=== PATIENT | female | born 1940 | race Two or more races ===

== ENCOUNTER 2018-12-25 22:45 | Inpatient (IN) | payer MEDICAID, MEDICARE ==
[2018-12-25 23:26] LABS: % BASOPHILS 0.6 % (0.0-2.0); % EOSINOPHILS 2.1 % (0.0-5.0); % LYMPHOCYTES 14.4 % (20.0-50.0); % NEUTROPHILS 77.9 % (40.0-80.0); BASOPHILE ABSOLUTE 0.1 Th/cumm (0-0.2); EOSINOPHILE ABSOLUTE 0.3 Th/cmm (0.1-0.4); HEMATOCRIT 44.1 % (41.0-60); HEMOGLOBIN 14.3 gm/dL (12-16); LYMPHOCYTE ABSOLUTE 1.8 Th/cmm (1.5-3.0); MEAN CELL VOLUME 84.7 fl (81-100); MEAN CORPUSCULAR HEMOGLOBIN 27.4 pg (27.0-31.0); MEAN CORPUSCULAR HGB CONC 32.4 pg (28.0-36.0); MONOCYTE ABSOLUTE 0.6 Th/cmm (0.3-1.0); NEUTROPHILE ABSOLUTE 9.5 Th/cmm (1.8-8.0); PLATELET COUNT 271 Th/cmm (150-400); RED CELL DISTRIBUTION WIDTH 14.1 % (11.5-20.0); WHITE BLOOD COUNT 12.3 Th/cmm (4.8-10.8)
[2018-12-26] LABS: ALKALINE PHOSPHATASE 54 U/L (34-104); ANION GAP 13.2 (7.0-16.0); BILIRUBIN,TOTAL 0.4 mg/dL (0.3-1.0); BUN - UREA NITROGEN 14 mg/dL (7-25); CALCIUM SERUM 9.6 mg/dL (8.6-10.3); CARBON DIOXIDE 27.2 mEq/L (21.0-31.0); CHLORIDE 99 mEq/L (98-107); CREATININE - SERUM 0.7 mg/dL (0.6-1.2); GLUCOSE 146 mg/dL (70-105); POTASSIUM SERUM 4.4 mEq/L (3.5-5.1); SGOT 14 U/L (13-39); SGPT/ALT 9 U/L (7-52); SODIUM SERUM 135 mEq/L (136-145); TOTAL PROTEIN,SERUM 8.2 gm/dL (6.0-8.3)
--- NOTE | 2018-12-26 00:55 | ED Physician Chart ---
ED Chief Complaint/HPI - Patient Information Date Seen:: 12/25/18 Time Seen:: 22:59 Chief Complaint:: RT KNEE PAIN History of Present Illness:: 78 YR OLD RT KNEE PAIN HX OF TROUBLE AMBULATION Allergies:: Allergies Allergy/AdvReac Type Severity Reaction Status Date / Time aspirin Allergy Verified 12/25/18 22:50 codeine Allergy Verified 12/25/18 22:50 Penicillins [PCN] Allergy Verified 12/25/18 22:50 Vitals:: Vital Signs - 8 hr 12/25/18 22:51 Temp 98.8 F HR 95 RR 17 BP 144/59 O2 Sat % 97 ED Review of Systems - Review of Systems General/Constitutional: No fever Skin: No skin lesions Head: No headache Eyes: No loss of vision ENT: No earache Neck: No neck pain Cardio Vascular: No chest pain Pulmonary: No SOB GI: No nausea [employer]: No abnormal vaginal bleed Endocrine: No polyuria Hematopoietic: No bruising Allergic/Immuno: No urticaria Neurological: No syncope Family Medical History - Family Member Mother History Unknown: Yes ED Labs/Radiology/EKG Results - Lab Results Results: Laboratory Tests 12/25/18 12/25/18 23:15 23:15 WBC 12.3 H RBC 5.20 Hgb 14.3 Hct 44.1 MCV 84.7 MCH 27.4 MCHC Differential 32.4 RDW 14.1 Plt Count 271 MPV 7.7 Neutrophils % 77.9 Lymphocytes % 14.4 L Monocytes % 5.0 Eosinophils % 2.1 Basophils % 0.6 Sodium 135 L Potassium 4.4 Chloride 99 Carbon Dioxide 27.2 Anion Gap 13.2 BUN 14 Creatinine 0.7 Est GFR ( Amer) TNP Est GFR (Non-Af Amer) TNP BUN/Creatinine Ratio 20.0 Glucose 146 H Calcium 9.6 Total Bilirubin 0.4 AST 14 ALT 9 Alkaline Phosphatase 54 Total Protein 8.2 Albumin 4.0 Globulin 4.2 Albumin/Globulin Ratio 1.0 ED Septic Shock - . Is Septic Shock (SBP<90, OR Lactate>4 mmol\L) present?: No - <6hrs of presentation: Vital Signs: Vital Signs - 8 hr 12/25/18 22:51 Temp 98.8 F HR 95 RR 17 BP 144/59 O2 Sat % 97
[2018-12-26 03:38] VITALS: BP 129/54
--- NOTE | 2018-12-26 09:24 | Diagnostic Imaging Report ---
Exam: Right knee joint HISTORY: Knee pain Exam: None Findings: Multiple views of the right knee joint reviewed. The study demonstrates extensive degenerative osteoarthritis with narrowing of the joint spaces flattening of tibial plateau. There is no evidence of fracture dislocation or joint effusion. Lateral examination of the right knee joint is suboptimal. IMPRESSION: extensive osteoarthritis right knee joint.
[2018-12-26] MEDS ORDERED: Hydrocodone/APAP 5mg/325mg Tab PO PRN (12:44)
[2018-12-27] MEDS ORDERED: GLUCAGON HCl 1 MG KIT IM PRN (03:04)
[2018-12-27] MEDS ORDERED: HYPROMELLOSE EACH EYE SCH (03:15)
[2018-12-27] MEDS ORDERED: DEXTRAN EACH EYE SCH (03:15)
--- NOTE | 2018-12-27 04:18 | History & Physical ---
ADMIT DATE: 12/26/2018 CHIEF COMPLAINT: Right knee pain, severe. HISTORY OF PRESENT ILLNESS: The patient is a 78-year-old female with a past medical history of COPD, asthma, diabetes mellitus type 2, hypertension, CKD, GERD without esophagitis, glaucoma, lives at [facility], brought to the ER for right knee pain, neck pain and left shoulder pains. On initial evaluation, her vitals were stable and labs showed WBC count 12,300. X-ray of the right knee suggest a severe DJD. She was unable to walk on her own. She was admitted with diagnosis of right knee pain requiring further evaluation. PAST MEDICAL HISTORY: Includes COPD, asthma, difficulty walking, severe arthritis, DJD, diabetes mellitus type 2, hypertension, CKD, GERD without esophagitis, and glaucoma. ALLERGIES: ASPIRIN, CODEINE AND PENICILLIN. MEDICATIONS: As per medication reconciliation sheet. It includes: Tylenol 650 mg p.o. q. 6 hourly p.r.n. for mild pain and fever with a temperature more than 101 degrees Fahrenheit, vitamin C 500 mg p.o. daily, brimonidine 0.2% ophthalmic drops one tab each eye twice a day, vitamin D3 5000 units p.o. daily, vitamin B12 1000 mcg p.o. daily, [place] 5/325 mg p.o. q. 6 hours p.r.n. for severe pain, regular insulin with sliding scale, latanoprost 0.005% eyedrops 1 drop each eye at nighttime, multivitamin 1 tablet p.o. daily and Timoptic 0.5% ophthalmic solution 1 drop each eye twice a day. SOCIAL HISTORY: The patient lives in a nursing facility. No history of smoking, alcohol or drug use. FAMILY HISTORY: Not available. IMMUNIZATION STATUS: Unknown. REVIEW OF SYSTEMS: GENERAL: The patient has no fever, no chills. HEENT: No diplopia, no photophobia, no sore throat. RESPIRATORY: No cough, no shortness of breath. CARDIOVASCULAR: No chest pain or palpitation. GASTROINTESTINAL: No nausea, no vomiting, no diarrhea, no constipation. GENITOURINARY: No dysuria. MUSCULOSKELETAL: The patient has neck pain and left shoulder pain. The patient had right knee pain. CENTRAL NERVOUS SYSTEM: No headache, no dizziness, no focal weakness. SKIN: No ulcers. PHYSICAL EXAMINATION: VITAL SIGNS: Shows temperature is 98.8 degrees Fahrenheit, pulse is 95, respirations 17 and blood pressure is 144/59. GENERAL: The patient is comfortable lying in the bed, obese, not in acute distress. HEENT: Head is normocephalic, atraumatic. Oral cavity moist, pink tongue. EYES: No pallor, no icterus. Pupils are PERRLA, EOMI. NECK: Supple, no JVD, no carotid bruit. Trachea in midline. CHEST: Bilateral breath sounds. No crackles or wheezing. HEART: S1, S2 within normal limits. Regular rhythm. No murmur, no gallop. ABDOMEN: Soft, nontender, nondistended. Bowel sounds present. EXTREMITIES: No cyanosis, no clubbing, no edema. The patient has severe right knee pain and tenderness. No further examination performed because of severe pain. The patient has tenderness in the left shoulder as well as some tenderness in the cervical spine. CENTRAL NERVOUS SYSTEM: Alert, awake, oriented x 3. Speech is clear. Follows the command. LABORATORY DATA: Current lab shows WBC count 12,300, hemoglobin 14.3, hematocrit 44.1, platelets are 271,000, neutrophil is 78%. Sodium 135, potassium 4.4, chloride 99, bicarbonate is 27.2, BUN is 14, creatinine 0.7, glucose is 146. Right knee x-ray showed severe degenerative joint disease. IMPRESSION: 1. Right knee pain, most likely secondary to degenerative joint disease. 2. Left shoulder pain may be secondary to degenerative joint disease. 3. Neck pain symptoms secondary to degenerative joint disease, arthritis. 4. Chronic obstructive pulmonary disease. 5. Asthma. 6. Essential hypertension. 7. Diabetes mellitus type 2. 8. Chronic kidney disease stage 2. 9. Gastroesophageal reflux disease. 10. Glaucoma in both eyes. 11. Leukocytosis. RECOMMENDATION AND PLAN: We will check x-ray of the left both shoulders, cervical spine, Orthopedic consultation and check ESR, CRP. Check urinalysis. We will continue checking the labs. Discussed with the patient in detail. JOB# [id number]
[2018-12-27 07:03] LABS: % BASOPHILS 0.2 % (0.0-2.0); % EOSINOPHILS 3.1 % (0.0-5.0); % LYMPHOCYTES 21.5 % (20.0-50.0); % NEUTROPHILS 70.2 % (40.0-80.0); EOSINOPHILE ABSOLUTE 0.4 Th/cmm (0.1-0.4); HEMATOCRIT 40.8 % (41.0-60); HEMOGLOBIN 13.1 gm/dL (12-16); LYMPHOCYTE ABSOLUTE 2.8 Th/cmm (1.5-3.0); MEAN CELL VOLUME 85.8 fl (81-100); MEAN CORPUSCULAR HEMOGLOBIN 27.5 pg (27.0-31.0); MONOCYTE ABSOLUTE 0.6 Th/cmm (0.3-1.0); PLATELET COUNT 318 Th/cmm (150-400); RED BLOOD COUNT 4.76 Mil/cmm (3.80-5.20); RED CELL DISTRIBUTION WIDTH 14.2 % (11.5-20.0); WHITE BLOOD COUNT 12.8 Th/cmm (4.8-10.8)
[2018-12-27 07:12] LABS: ANION GAP 11.2 (7.0-16.0); BUN - UREA NITROGEN 15 mg/dL (7-25); CALCIUM SERUM 9.2 mg/dL (8.6-10.3); CARBON DIOXIDE 26.7 mEq/L (21.0-31.0); CHLORIDE 100 mEq/L (98-107); CREATININE - SERUM 0.6 mg/dL (0.6-1.2); GLUCOSE 126 mg/dL (70-105); POTASSIUM SERUM 3.9 mEq/L (3.5-5.1); SODIUM SERUM 134 mEq/L (136-145)
[2018-12-27] MEDS: INSULIN HUMAN REGULAR 100 UNIT/ML VIAL SUBQ SCH (07:21)
[2018-12-27 08:56] LABS: ESR SEDIMENTATION SED RATE 54 mm/hr (0-30)
[2018-12-27] MEDS ORDERED: Non-Formulary Item 1 EA (Cholecalciferol (Vitamin D3) [Vitamin D3] 5,000 UNIT) PO SCH (09:00)
[2018-12-27] MEDS: Multivitamin Tab PO SCH (09:11)
[2018-12-27] MEDS: Polyvinyl Alcohol Ophth Soln 15 mL Bottle EACH EYE SCH ×2 (09:23→18:58)
--- NOTE | 2018-12-27 09:36 | Diagnostic Imaging Report ---
Left shoulder (3 views) HISTORY: Pain Mild irregularity associated degenerative changes noted along the lateral aspect of the humeral head. Mild narrowing and hypertrophic bony changes seen about the acromioclavicular joint. No acute abnormalities. No fractures. No dislocation. IMPRESSION: 1. Mild degenerative changes 2. No acute abnormalities
--- NOTE | 2018-12-27 09:46 | Diagnostic Imaging Report ---
Right shoulder (3 views) HISTORY: Pain No acute bony abnormalities. No fractures. No dislocation. Narrowing and hypertrophic bone formation noted about the acromioclavicular joint. IMPRESSION: 1. Degenerative changes 2. No acute abnormalities
--- NOTE | 2018-12-27 09:47 | Diagnostic Imaging Report ---
Cervical spine (4 views) HISTORY: Pain The body of C7 is not well seen due to difficulty in patient positioning. Straightening of the cervical lordosis which may be associated spasm. There appears to be narrowing the C4-5 and C5-6 interspaces. Suggestion of narrowing the C6-7 interspace. Mild spur formation noted about the endplates of C3-4, C5, C6. No definite acute abnormalities. No definite fractures. 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 Prevertebral soft tissues appear normal. IMPRESSION: 1. Limited exam due to difficulty in patient positioning 2. No acute abnormalities 3. Degenerative changes 4. Hypoplastic cervical ribs
[2018-12-27] MEDS ORDERED: Non-Formulary Item 1 EA (Latanoprost/Pf [Latanoprost 0.005% Eye Drop] 1 DROP) EACH EYE SCH (21:00)
[2018-12-28 05:37] LABS: % LYMPHOCYTES 22.8 % (20.0-50.0); % MONOCYTES 4.1 % (2.0-10.0); % NEUTROPHILS 70.1 % (40.0-80.0); EOSINOPHILE ABSOLUTE 0.3 Th/cmm (0.1-0.4); HEMOGLOBIN 13.7 gm/dL (12-16); LYMPHOCYTE ABSOLUTE 2.5 Th/cmm (1.5-3.0); MEAN CELL VOLUME 84.1 fl (81-100); MEAN CORPUSCULAR HEMOGLOBIN 28.1 pg (27.0-31.0); MEAN CORPUSCULAR HGB CONC 33.3 pg (28.0-36.0); MONOCYTE ABSOLUTE 0.5 Th/cmm (0.3-1.0); NEUTROPHILE ABSOLUTE 7.8 Th/cmm (1.8-8.0); PLATELET COUNT 289 Th/cmm (150-400); RED BLOOD COUNT 4.88 Mil/cmm (3.80-5.20); RED CELL DISTRIBUTION WIDTH 13.6 % (11.5-20.0); WHITE BLOOD COUNT 11.1 Th/cmm (4.8-10.8)
[2018-12-28 05:53] LABS: ANION GAP 12.4 (7.0-16.0); BUN - UREA NITROGEN 16 mg/dL (7-25); CALCIUM SERUM 9.4 mg/dL (8.6-10.3); CARBON DIOXIDE 25.5 mEq/L (21.0-31.0); CHLORIDE 99 mEq/L (98-107); CREATININE - SERUM 0.6 mg/dL (0.6-1.2); GLUCOSE 132 mg/dL (70-105); POTASSIUM SERUM 3.9 mEq/L (3.5-5.1); SODIUM SERUM 133 mEq/L (136-145)
[2018-12-28] MEDS: INSULIN HUMAN REGULAR 100 UNIT/ML VIAL SUBQ SCH (06:32)
[2018-12-28] MEDS: Multivitamin Tab PO SCH (09:57)
[2018-12-28] MEDS: Polyvinyl Alcohol Ophth Soln 15 mL Bottle EACH EYE SCH ×2 (11:26→17:21)
[2018-12-29] MEDS: INSULIN HUMAN REGULAR 100 UNIT/ML VIAL SUBQ SCH (06:31)
[2018-12-29 07:06] LABS: HEMATOCRIT 43.2 % (41.0-60); HEMOGLOBIN 14.5 gm/dL (12-16); MEAN CELL VOLUME 83.4 fl (81-100); MEAN CORPUSCULAR HEMOGLOBIN 27.9 pg (27.0-31.0); MEAN CORPUSCULAR HGB CONC 33.4 pg (28.0-36.0); PLATELET COUNT 278 Th/cmm (150-400); RED BLOOD COUNT 5.18 Mil/cmm (3.80-5.20); RED CELL DISTRIBUTION WIDTH 13.7 % (11.5-20.0); WHITE BLOOD COUNT 10.3 Th/cmm (4.8-10.8)
[2018-12-29 07:18] LABS: ANION GAP 13.5 (7.0-16.0); BUN - UREA NITROGEN 15 mg/dL (7-25); CALCIUM SERUM 9.4 mg/dL (8.6-10.3); CARBON DIOXIDE 24.4 mEq/L (21.0-31.0); CHLORIDE 99 mEq/L (98-107); CREATININE - SERUM 0.6 mg/dL (0.6-1.2); GLUCOSE 138 mg/dL (70-105); POTASSIUM SERUM 3.9 mEq/L (3.5-5.1); SODIUM SERUM 133 mEq/L (136-145)
--- NOTE | 2018-12-29 07:20 | Progress Notes ---
DATE: 12/28/2018 INTERNAL MEDICINE PROGRESS NOTE SUBJECTIVE: The patient is lying in the bed, complains of right knee pain, left shoulder pain and neck pain. X-ray done and it just showed severe DJD osteoarthritis. OBJECTIVE: VITAL SIGNS: Current vital signs show temperature is 98.8, pulse 92, respirations 18, blood pressure 128/61. GENERAL: The patient is comfortable lying in the bed, not in acute distress. Obese. HEAD, EYES, EARS, NOSE, AND THROAT: Head is normocephalic, atraumatic. Oral cavity moist, pink tongue. EYES: No pallor, no icterus. PERRLA, EOMI. NECK: Supple, no JVD, no carotid bruit. Trachea in midline. CHEST: Bilateral breath sounds. No crackles or wheezing. HEART: S1, S2 within normal limits. Regular rhythm. No murmur, no gallop. ABDOMEN: Soft, nontender, nondistended. Bowel sounds present. EXTREMITIES: No cyanosis, no clubbing, no edema. NEUROLOGIC: Alert, awake, oriented x 3. LABORATORY DATA: Current lab shows WBC count is 11,100, hemoglobin 13.7, hematocrit 41, platelets are 289,000, neutrophils 70%. Sodium 133, potassium 3.9, chloride 99, bicarbonate is 25, BUN is 16, creatinine 0.6, glucose is 132. Rheumatoid factor is less than 10. MRSA screen is negative. ASSESSMENT: 1. Right knee pain, most likely secondary to DJD. The patient needs orthopedic consultation. Unfortunately, we do not have any orthopedic consultation available at this time in this facility. 2. Leukocytosis. 3. Left shoulder pain, most likely DJD. 4. Neck pain secondary to DJD. 5. Chronic obstructive pulmonary disease. 6. Asthma. 7. Essential hypertension. 8. Diabetes mellitus type 2. 9. Chronic kidney disease stage 2. 10. Gastroesophageal reflux disease. 11. Glaucoma in both eyes. RECOMMENDATION AND PLAN: We will discharge the patient tomorrow on 12/29/2018. The patient may follow up with orthopedic consultation as outpatient basis and may consider going back to the [facility], where she goes of most of the time. ARIELLE patient. JOB# [id number] [facility]IT[facility]
[2018-12-29 08:00] LABS: BAND NEUTROPHILE 0 % (0-10); BASOPHIL 0 % (0-3); EOSINOPHIL 3 % (0-5); LYMPHOCYTE 24 % (20-50); MONOCYTE 2 % (2-10); NEUTROPHILS 71 % (40-80)
[2018-12-29] MEDS: Multivitamin Tab PO SCH (09:00)
[2018-12-29] MEDS: Polyvinyl Alcohol Ophth Soln 15 mL Bottle EACH EYE SCH ×2 (09:00→17:02)
[2018-12-30] MEDS: INSULIN HUMAN REGULAR 100 UNIT/ML VIAL SUBQ SCH (06:48)
[2018-12-30] MEDS: Polyvinyl Alcohol Ophth Soln 15 mL Bottle EACH EYE SCH ×2 (08:20→16:41)
[2018-12-30] MEDS: Multivitamin Tab PO SCH (08:22)
--- NOTE | 2018-12-30 15:19 | Infectious Disease Prog Note ---
Infectious Disease Subjective - Review of Systems Service Date: 12/30/18 Subjective: C/o of right knee pains. Neck pains. Infectious Disease Objective - Results Result Diagrams: 12/29/18 06:44 12/29/18 06:44 Recent Labs: Laboratory Last Values WBC 10.3 Th/cmm (4.8-10.8) 12/29/18 06:44 RBC 5.18 Mil/cmm (3.80-5.20) 12/29/18 06:44 Hgb 14.5 gm/dL (12-16) 12/29/18 06:44 Hct 43.2 % (41.0-60) 12/29/18 06:44 MCV 83.4 fl (81-100) 12/29/18 06:44 MCH 27.9 pg (27.0-31.0) 12/29/18 06:44 MCHC Differential 33.4 pg (28.0-36.0) 12/29/18 06:44 RDW 13.7 % (11.5-20.0) 12/29/18 06:44 Plt Count 278 Th/cmm (150-400) 12/29/18 06:44 MPV 8.1 fl 12/29/18 06:44 Add Manual Diff YES 12/29/18 06:44 Neutrophils % 70.1 % (40.0-80.0) 12/28/18 05:10 Band Neutrophils % 0 % (0-10) 12/29/18 06:44 Lymphocytes % 22.8 % (20.0-50.0) 12/28/18 05:10 Monocytes % 4.1 % (2.0-10.0) 12/28/18 05:10 Eosinophils % 3.0 % (0.0-5.0) 12/28/18 05:10 Basophils % 0.0 % (0.0-2.0) 12/28/18 05:10 Neutrophils (Manual) 71 % (40-80) 12/29/18 06:44 Lymphocytes 24 % (20-50) 12/29/18 06:44 Monocytes 2 % (2-10) 12/29/18 06:44 Eosinophils 3 % (0-5) 12/29/18 06:44 Basophils 0 % (0-3) 12/29/18 06:44 ESR 54 mm/hr (0-30) H 12/27/18 05:45 Sodium 133 mEq/L (136-145) L 12/29/18 06:44 Potassium 3.9 mEq/L (3.5-5.1) 12/29/18 06:44 Chloride 99 mEq/L (98-107) 12/29/18 06:44 Carbon Dioxide 24.4 mEq/L (21.0-31.0) 12/29/18 06:44 Anion Gap 13.5 (7.0-16.0) 12/29/18 06:44 BUN 15 mg/dL (7-25) 12/29/18 06:44 Creatinine 0.6 mg/dL (0.6-1.2) 12/29/18 06:44 Est GFR ( Amer) TNP 12/29/18 06:44 Est GFR (Non-Af Amer) TNP 12/29/18 06:44 BUN/Creatinine Ratio 25.0 12/29/18 06:44 Glucose 138 mg/dL (70-105) H 12/29/18 06:44 POC Glucose 108 MG/DL (70 - 105) H 12/30/18 06:38 Calcium 9.4 mg/dL (8.6-10.3) 12/29/18 06:44 Total Bilirubin 0.4 mg/dL (0.3-1.0) 12/25/18 23:15 AST 14 U/L (13-39) 12/25/18 23:15 ALT 9 U/L (7-52) 12/25/18 23:15 Alkaline Phosphatase 54 U/L (34-104) 12/25/18 23:15 C-Reactive Protein 4.6 mg/dL (0.0-0.9) H 12/27/18 05:45 Total Protein 8.2 gm/dL (6.0-8.3) 12/25/18 23:15 Albumin 4.0 gm/dL (3.7-5.3) 12/25/18 23:15 Globulin 4.2 gm/dL 12/25/18 23:15 Albumin/Globulin Ratio 1.0 (1.0-1.8) 12/25/18 23:15 Rheumatoid Factor <10.0 IU/mL (0.0-13.9) 12/27/18 15:00 - Physical Exam Vitals and I&O: Vital Signs Temp 98.1 F 12/30/18 11:00 Pulse 90 12/30/18 11:00 Resp 20 12/30/18 11:00 BP 103/74 12/30/18 11:00 Pulse Ox 96 12/30/18 11:00 Intake & Output 12/29/18 12/30/18 12/30/18 18:59 06:59 18:59 Intake Total 1800 Balance 1800 Weight (lbs) 113.398 kg Intake: Oral 1800 Other: # Voids 4 # Bowel Movements 0 Weight Source Bedscale Active Medications: Current Medications Acetaminophen (Tylenol) 650 mg PO Q6H PRN PRN Reason: Pain (Mild) Stop: 02/24/19 12:44 Last Admin: 12/30/18 08:27 Dose: 650 mg Acetaminophen (Tylenol) 650 mg PO Q6HR PRN PRN Reason: Pain or Fever >101 Stop: 02/25/19 03:03 Last Admin: 12/30/18 01:13 Dose: 650 mg Acetaminophen/Hydrocodone Bitart ([place] 5mg/325mg) 2 tab PO Q6H PRN PRN Reason: Pain (Severe) Stop: 02/24/19 12:43 Artificial Tears (Artificial Tears Ophth Soln) 1 drop EACH EYE BID [facility] Stop: 02/25/19 08:59 Last Admin: 12/30/18 08:20 Dose: 1 drop Ascorbic Acid (Vitamin C) 500 mg PO DAILY [facility] Stop: 02/25/19 08:59 Last Admin: 12/30/18 08:22 Dose: 500 mg Brimonidine Tartrate (Alphagan 0.2% Ophth Soln) 1 drop EACH EYE BID [facility] Stop: 02/25/19 08:59 Last Admin: 12/30/18 08:33 Dose: Not Given Cholecalciferol (Vitamin D3) 5,000 iu PO DAILY [facility] Stop: 02/25/19 08:59 Last Admin: 12/30/18 08:21 Dose: 5,000 iu Cyanocobalamin (Vitamin B12) 1,000 mcg PO DAILY [facility] Stop: 02/25/19 08:59 Last Admin: 12/30/18 08:22 Dose: 1,000 mcg Diphenhydramine HCl (Benadryl) 25 mg PO Q6HR PRN PRN Reason: Itching Stop: 02/27/19 21:48 Last Admin: 12/30/18 08:25 Dose: 25 mg Glucagon (Glucagen) 1 mg IM PRN PRN PRN Reason: HYPOGLYCEMIA Stop: 02/25/19 03:03 Insulin Human Regular (Humulin R) 0 unit SUBQ QDAC [facility]; Protocol Stop: 02/25/19 07:29 Last Admin: 12/30/18 06:48 Dose: Not Given Latanoprost (Xalatan 0.005% Ophth Soln) 1 drop EACH EYE HS [facility] Stop: 02/25/19 20:59 Last Admin: 12/29/18 21:01 Dose: 1 drop Multivitamins/Vitamin C (Theragran) 1 tab PO DAILY [facility] Stop: 02/25/19 08:59 Last Admin: 12/30/18 08:22 Dose: 1 tab Timolol Maleate (Timoptic 0.5% Ophth Soln) 1 drop EACH EYE BID [facility] Stop: 02/25/19 08:59 Last Admin: 12/30/18 08:33 Dose: Not Given General: no acute distress, well developed, well nourished HEENT: atraumatic, normocephalic, PERRLA, EOMI Neck: supple, no thyromegaly Cardiovascular: S1S2, regular Lungs: clear to auscultation bilaterally, clear to percussion Abdomen: soft, no tender, no distended Extremities: no cyanosis, no clubbing, no edema Neurological: awake, alert, oriented Skin: intact Infectious Disease Assmt/Plan - Assessment Assessment: 1. Right knee pain, likely secondary to DJD. The patient needs orthopedic consultation. Unfortunately, we do not have any orthopedic consultation available at this time in this facility. 2. Leukocytosis. 3. Left shoulder pain, most likely DJD. 4. Neck pain secondary to DJD. 5. Chronic obstructive pulmonary disease. 6. Asthma. 7. Essential hypertension. 8. Diabetes mellitus type 2. 9. Chronic kidney disease stage 2. 10. Gastroesophageal reflux disease. 11. Glaucoma in both eyes. - Plan Plan: Patient has refused to go to [facility]. Will discharge patient to and from there she will need to go and see ortho consult as inpatient or outpatient. Nutritional Asmnt/Malnutr-PDOC - Dietary Evaluation Malnutrition Findings (Please click <Entered> for more info): Nutritional Asmnt/Malnutrition Start: 12/26/18 15: 55 Text: Status: Complete Freq: Protocol: Document 12/26/18 15:56 DIANNA (Rec: 12/26/18 15:59 DIANNA [email or web address]) Nutritional Asmnt/Malnutrition Patient General Information Nutritional Screening High Risk Consult Diagnosis RT knee pain, Leukocytosis Pertinent Medical Hx/Surgical Hx (None noted) No H&P Report Subjective Information IA, Consult: Obesity (BMI 40. 35), DM (Glucose 146) Pt is a 78-year-old female admitted on 12/26 from [facility] c/o knee pain so severe she could not walk. Visited Pt at bedside. Pt did not want to talk about her weight, and denied having DM. She stated she only eats chicken and vegetables, but she does eat sweets and does not eat anything sugar-free. Gathered Pt likes and dislikes and other food preferences, Pt stated she ate a good breakfast and lunch. Pt was still waiting to see the MD at time of visit. HT: 56 WT: 250 LB (113.64 kg) ABW: 160 LB (72.73 kg) BMI: 40.35 (Obese, Class III) GI: WNL, flat, soft, non- tender, large BM: 12/25 I/O: Not Noted Skin: WNL, warm, moist, elastic, dryness, LT heel dryness Forrest: 15 [facility] Estimated Energy Needs: (Obese , ABW) 8647-9906 kcals (20-25 kcals/ kg) 65-72G Pro (0.9-1.0 g/kg) 9429-7219 ml (25-30 ml/kg) Current Diet Order/ Nutrition Support [facility] Pertinent Medications no pertinent medications to report Pertinent Labs 12/25: Glucose 146 Nutritional Hx/Data Height 1.68 m Height (Calculated Centimeters) 167.6 Current Weight (lbs) 113.398 kg Weight (Calculated Kilograms) 113.4 Weight (Calculated Grams) 944123.1 [place] Body Weight 130lb (59.09 kg) % [place] Body Weight 192 Body Mass Index (BMI) 40.3 Weight Status Obese GI Symptoms GI Symptoms None Last BM 12/25 x1 Skin Integrity/Comment: Skin: WNL, warm, moist, elastic, dryness, LT heel dryness Forrest: 15 Current %PO Good (75-100%) Estimated Nutritional Goals BEE in Kcals: Adj wt of IBW Calories/Kcals/Kg 20-25 Kcals Calculated 5197-4593 Protein: Adj wt of IBW Protein g/k.9-1.0 Protein Calculated 65-72 Fluid: ml 6658-2945 ml (25-30 ml/kg) Nutritional Problem 2. Problem Problem Altered nutrition related labs Etiology r/t medical condition Signs/Symptoms: aeb glucose 146 1. Problem Problem Obesity Etiology r/t energy overconsumption Signs/Symptoms: aeb BMI 40.35, 192% IBW Malnutrition Related to Morbid Obesity Malnutrition related to morbid obesity BMI> or equal to 40 Query Text:(Any 1 Criteria met) Malnutrition related to morbid obesity Yes Intervention/Recommendation Comments 1. Continue with [facility] diet as ordered. 2. Consider calorie restriction in addition to CCHO Dx. Expected Outcomes/Goals Expected Outcomes/Goals 1. PO intake to meet 75% of nutritional needs. 2. Monitor PO intake, wt, nutrition related labs, and skin integrity. 3. F/U as moderate risk in 3-5 days, 12/29-12/31
[2018-12-31] MEDS: INSULIN HUMAN REGULAR 100 UNIT/ML VIAL SUBQ SCH (06:48)
[2018-12-31] MEDS: Multivitamin Tab PO SCH (08:37)
[2018-12-31] MEDS: Polyvinyl Alcohol Ophth Soln 15 mL Bottle EACH EYE SCH ×2 (08:37→16:05)
--- NOTE | 2018-12-31 11:23 | Infectious Disease Prog Note ---
Infectious Disease Subjective - Review of Systems Service Date: 12/31/18 Subjective: C/o of right knee pains. Neck pains. Infectious Disease Objective - Results Result Diagrams: 12/29/18 06:44 12/29/18 06:44 Recent Labs: Laboratory Last Values WBC 10.3 Th/cmm (4.8-10.8) 12/29/18 06:44 RBC 5.18 Mil/cmm (3.80-5.20) 12/29/18 06:44 Hgb 14.5 gm/dL (12-16) 12/29/18 06:44 Hct 43.2 % (41.0-60) 12/29/18 06:44 MCV 83.4 fl (81-100) 12/29/18 06:44 MCH 27.9 pg (27.0-31.0) 12/29/18 06:44 MCHC Differential 33.4 pg (28.0-36.0) 12/29/18 06:44 RDW 13.7 % (11.5-20.0) 12/29/18 06:44 Plt Count 278 Th/cmm (150-400) 12/29/18 06:44 MPV 8.1 fl 12/29/18 06:44 Add Manual Diff YES 12/29/18 06:44 Neutrophils % 70.1 % (40.0-80.0) 12/28/18 05:10 Band Neutrophils % 0 % (0-10) 12/29/18 06:44 Lymphocytes % 22.8 % (20.0-50.0) 12/28/18 05:10 Monocytes % 4.1 % (2.0-10.0) 12/28/18 05:10 Eosinophils % 3.0 % (0.0-5.0) 12/28/18 05:10 Basophils % 0.0 % (0.0-2.0) 12/28/18 05:10 Neutrophils (Manual) 71 % (40-80) 12/29/18 06:44 Lymphocytes 24 % (20-50) 12/29/18 06:44 Monocytes 2 % (2-10) 12/29/18 06:44 Eosinophils 3 % (0-5) 12/29/18 06:44 Basophils 0 % (0-3) 12/29/18 06:44 ESR 54 mm/hr (0-30) H 12/27/18 05:45 Sodium 133 mEq/L (136-145) L 12/29/18 06:44 Potassium 3.9 mEq/L (3.5-5.1) 12/29/18 06:44 Chloride 99 mEq/L (98-107) 12/29/18 06:44 Carbon Dioxide 24.4 mEq/L (21.0-31.0) 12/29/18 06:44 Anion Gap 13.5 (7.0-16.0) 12/29/18 06:44 BUN 15 mg/dL (7-25) 12/29/18 06:44 Creatinine 0.6 mg/dL (0.6-1.2) 12/29/18 06:44 Est GFR ( Amer) TNP 12/29/18 06:44 Est GFR (Non-Af Amer) TNP 12/29/18 06:44 BUN/Creatinine Ratio 25.0 12/29/18 06:44 Glucose 138 mg/dL (70-105) H 12/29/18 06:44 POC Glucose 108 MG/DL (70 - 105) H 12/30/18 06:38 Calcium 9.4 mg/dL (8.6-10.3) 12/29/18 06:44 Total Bilirubin 0.4 mg/dL (0.3-1.0) 12/25/18 23:15 AST 14 U/L (13-39) 12/25/18 23:15 ALT 9 U/L (7-52) 12/25/18 23:15 Alkaline Phosphatase 54 U/L (34-104) 12/25/18 23:15 C-Reactive Protein 4.6 mg/dL (0.0-0.9) H 12/27/18 05:45 Total Protein 8.2 gm/dL (6.0-8.3) 12/25/18 23:15 Albumin 4.0 gm/dL (3.7-5.3) 12/25/18 23:15 Globulin 4.2 gm/dL 12/25/18 23:15 Albumin/Globulin Ratio 1.0 (1.0-1.8) 12/25/18 23:15 Rheumatoid Factor <10.0 IU/mL (0.0-13.9) 12/27/18 15:00 - Physical Exam Vitals and I&O: Vital Signs Temp 96.6 F 12/31/18 08:00 Pulse 52 12/31/18 08:00 Resp 16 12/31/18 08:00 BP 145/66 12/31/18 08:00 Pulse Ox 94 12/31/18 08:00 Intake & Output 12/30/18 12/31/18 12/31/18 18:59 06:59 18:59 Intake Total 1000 Balance 1000 Weight (lbs) 113.398 kg Intake: Oral 1000 Other: # Voids 3 Weight Source Bedscale Active Medications: Current Medications Acetaminophen (Tylenol) 650 mg PO Q6H PRN PRN Reason: Pain (Mild) Stop: 02/24/19 12:44 Last Admin: 12/30/18 18:04 Dose: 650 mg Acetaminophen (Tylenol) 650 mg PO Q6HR PRN PRN Reason: Pain or Fever >101 Stop: 02/25/19 03:03 Last Admin: 12/30/18 01:13 Dose: 650 mg Acetaminophen/Hydrocodone Bitart (Locke 5mg/325mg) 2 tab PO Q6H PRN PRN Reason: Pain (Severe) Stop: 02/24/19 12:43 Artificial Tears (Artificial Tears Ophth Soln) 1 drop EACH EYE BID [facility] Stop: 02/25/19 08:59 Last Admin: 12/31/18 08:37 Dose: 1 drop Ascorbic Acid (Vitamin C) 500 mg PO DAILY [facility] Stop: 02/25/19 08:59 Last Admin: 12/31/18 08:37 Dose: 500 mg Brimonidine Tartrate (Alphagan 0.2% Ophth Soln) 1 drop EACH EYE BID [facility] Stop: 02/25/19 08:59 Last Admin: 12/31/18 08:36 Dose: Not Given Cholecalciferol (Vitamin D3) 5,000 iu PO DAILY [facility] Stop: 02/25/19 08:59 Last Admin: 12/31/18 08:36 Dose: 5,000 iu Cyanocobalamin (Vitamin B12) 1,000 mcg PO DAILY [facility] Stop: 02/25/19 08:59 Last Admin: 12/31/18 08:37 Dose: 1,000 mcg Diphenhydramine HCl (Benadryl) 25 mg PO Q6HR PRN PRN Reason: Itching Stop: 02/27/19 21:48 Last Admin: 12/30/18 18:05 Dose: 25 mg Glucagon (Glucagen) 1 mg IM PRN PRN PRN Reason: HYPOGLYCEMIA Stop: 02/25/19 03:03 Insulin Human Regular (Humulin R) 0 unit SUBQ QDAC [facility]; Protocol Stop: 02/25/19 07:29 Last Admin: 12/31/18 06:48 Dose: Not Given Latanoprost (Xalatan 0.005% Ophth Soln) 1 drop EACH EYE HS [facility] Stop: 02/25/19 20:59 Last Admin: 12/29/18 21:01 Dose: 1 drop Multivitamins/Vitamin C (Theragran) 1 tab PO DAILY [facility] Stop: 02/25/19 08:59 Last Admin: 12/31/18 08:37 Dose: 1 tab Timolol Maleate (Timoptic 0.5% Ophth Soln) 1 drop EACH EYE BID [facility] Stop: 02/25/19 08:59 Last Admin: 12/31/18 08:37 Dose: Not Given General: no acute distress, well developed, well nourished HEENT: atraumatic, normocephalic, PERRLA, EOMI, moist mucous membrane Neck: supple, no thyromegaly Cardiovascular: S1S2, regular Lungs: clear to auscultation bilaterally, clear to percussion Abdomen: soft, no tender, no distended Extremities: no cyanosis, no clubbing, no edema Neurological: awake, alert, oriented Skin: intact Infectious Disease Assmt/Plan - Assessment Assessment: 1. Right knee pain, likely secondary to DJD. The patient needs orthopedic consultation. Unfortunately, we do not have any orthopedic consultation available at this time in this facility. 2. Leukocytosis. 3. Left shoulder pain, most likely DJD. 4. Neck pain secondary to DJD. 5. Chronic obstructive pulmonary disease. 6. Asthma. 7. Essential hypertension. 8. Diabetes mellitus type 2. 9. Chronic kidney disease stage 2. 10. Gastroesophageal reflux disease. 11. Glaucoma in both eyes. - Plan Plan: Patient has refused to go to [facility]. Will discharge patient to [facility] and from there she will need to go and see ortho consult as inpatient or outpatient. Nutritional Asmnt/Malnutr-PDOC - Dietary Evaluation Malnutrition Findings (Please click <Entered> for more info): Nutritional Asmnt/Malnutrition Start: 12/26/18 15: 55 Text: Status: Complete Freq: Protocol: Document 12/26/18 15:56 DIANNA (Rec: 12/26/18 15:59 DIANNA [email or web address]) Nutritional Asmnt/Malnutrition Patient General Information Nutritional Screening High Risk Consult Diagnosis RT knee pain, Leukocytosis Pertinent Medical Hx/Surgical Hx (None noted) No H&P Report Subjective Information IA, Consult: Obesity (BMI 40. 35), DM (Glucose 146) Pt is a 78-year-old female admitted on 12/26 from [facility] c/o knee pain so severe she could not walk. Visited Pt at bedside. Pt did not want to talk about her weight, and denied having DM. She stated she only eats chicken and vegetables, but she does eat sweets and does not eat anything sugar-free. Gathered Pt likes and dislikes and other food preferences, Pt stated she ate a good breakfast and lunch. Pt was still waiting to see the MD at time of visit. HT: 56 WT: 250 LB (113.64 kg) ABW: 160 LB (72.73 kg) BMI: 40.35 (Obese, Class III) GI: WNL, flat, soft, non- tender, large BM: 12/25 I/O: Not Noted Skin: WNL, warm, moist, elastic, dryness, LT heel dryness Forrest: 15 [facility] Estimated Energy Needs: (Obese , ABW) 3867-5464 kcals (20-25 kcals/ kg) 65-72G Pro (0.9-1.0 g/kg) 9739-3512 ml (25-30 ml/kg) Current Diet Order/ Nutrition Support [facility] [place] Pertinent Medications no pertinent medications to report Pertinent Labs 12/25: Glucose 146 Nutritional Hx/Data Height 1.68 m Height (Calculated Centimeters) 167.6 Current Weight (lbs) 113.398 kg Weight (Calculated Kilograms) 113.4 Weight (Calculated Grams) 140267.1 [place] Body Weight 130lb (59.09 kg) % [place] Body Weight 192 Body Mass Index (BMI) 40.3 Weight Status Obese GI Symptoms GI Symptoms None Last BM 12/25 x1 Skin Integrity/Comment: Skin: WNL, warm, moist, elastic, dryness, LT heel dryness Forrest: 15 Current %PO Good (75-100%) Estimated Nutritional Goals BEE in Kcals: Adj wt of IBW Calories/Kcals/Kg 20-25 Kcals Calculated 5635-2839 Protein: Adj wt of IBW Protein g/k.9-1.0 Protein Calculated 65-72 Fluid: ml 5234-0736 ml (25-30 ml/kg) Nutritional Problem 2. Problem Problem Altered nutrition related labs Etiology r/t medical condition Signs/Symptoms: aeb glucose 146 1. Problem Problem Obesity Etiology r/t energy overconsumption Signs/Symptoms: aeb BMI 40.35, 192% IBW Malnutrition Related to Morbid Obesity Malnutrition related to morbid obesity BMI> or equal to 40 Query Text:(Any 1 Criteria met) Malnutrition related to morbid obesity Yes Intervention/Recommendation Comments 1. [facility] with [facility] as ordered. 2. Consider calorie restriction in addition to CCHO Dx. Expected Outcomes/Goals Expected Outcomes/Goals 1. PO intake to meet 75% of nutritional needs. 2. Monitor PO intake, wt, nutrition related labs, and skin integrity. 3. F/U as moderate risk in 3-5 days, 12/29-12/31
[2019-01-01] MEDS: INSULIN HUMAN REGULAR 100 UNIT/ML VIAL SUBQ SCH (06:54)
[2019-01-01] MEDS: Polyvinyl Alcohol Ophth Soln 15 mL Bottle EACH EYE SCH (08:23)
[2019-01-01] MEDS: Multivitamin Tab PO SCH (08:24)
== END 2019-01-01 12:20 | DRG 554 ==
LOC: ER 22:45 → MSI 12-26 01:35
PROVIDERS: ADMIT Internal Medicine Infectious Disease; ATTEND Internal Medicine Infectious Disease
DX: M17.11 Unilateral primary osteoarthritis, right knee (principal); J44.9 Chronic obstructive pulmonary disease, unspecified; M19.012 Primary osteoarthritis, left shoulder; I12.9 Hypertensive chronic kidney disease with stage 1 through stage 4 chronic kidney disease, or unspecified chronic kidney disease; E11.22 Type 2 diabetes mellitus with diabetic chronic kidney disease; N18.2 Chronic kidney disease, stage 2 (mild); K21.9 Gastro-esophageal reflux disease without esophagitis; H40.89 Other specified glaucoma; M54.2 Cervicalgia; D72.829 Elevated white blood cell count, unspecified; Z88.6 Allergy status to analgesic agent; Z88.5 Allergy status to narcotic agent; Z88.0 Allergy status to penicillin
CPT/HCPCS: 36415-UA; 72040-TC; 73030-TC-LT; 73030-TC-RT; 73562-TC-RT; 80048-TC; 80053-TC; 82948-90; 85007-TC; 85025-TC; 85652-TC; 86141-TC; 86430-90; 93005; Z7610